=== PATIENT | male | born 1935 | race Caucasian/White ===

== ENCOUNTER 2019-02-11 11:08 | Inpatient (IN) | payer MEDICARE, BC ==
[2019-02-11] MEDS ORDERED: Ondansetron 4 MG/2 ML SDV IVPUSH PRN (11:20)
[2019-02-11] MEDS ORDERED: Sodium Chloride 0.9% 250 ML IV SCH (11:30)
[2019-02-11 11:50] LABS: CHLORIDE,CL 107 mEq/L (98-106); SODIUM,NA 143 mEq/L (136-145)
--- NOTE | 2019-02-11 12:11 | EDM.PDOC ---
ED HPI GENERAL MEDICAL PROBLEM - General Chief Complaint: General Stated Complaint: vomiting, dizziness Time Seen by Provider: 02/11/19 11:25 Source of Information: Reports: Patient, Family History Limitations: Reports: No Limitations - History of Present Illness INITIAL COMMENTS - FREE TEXT/NARRATIVE: Patient is an 83 year old male who presents to ER per EMS with complaints of sudden onset dizziness and vomiting. Was fine when awakening this am, was sitting at his computer when everything in the room started spinning. He laid down on the floor but it did not subside and had multiple emesis thereafter so EMS was called. Has not experienced anything like this in the past. No recent head trauma. No URI. Denies chest pain, shortness of breath or abdominal pain. No fevers. Has continued dizziness now with any head movements. PMH does include atrial fib, has been stable for many years, currently on Warfarin. Onset: Today, Sudden Duration: Hour(s): Location: Reports: Head Severity: Severe Improves with: Reports: Rest Worsens with: Reports: Movement Associated Symptoms: Reports: Nausea/Vomiting. Denies: Confusion, Chest Pain, Cough, Diaphoresis, Fever/Chills, Headaches, Loss of Appetite, Shortness of Breath, Syncope, Weakness - Related Data Allergies Allergy/AdvReac Type Severity Reaction Status Date / Time No Known Allergies Allergy Verified 02/11/19 11:19 Home Meds: Home Meds . [Unable to Verify Home Med List] 02/11/19 [History] Past Medical History - Past Health History Medical/Surgical History: Denies Medical/Surgical History Cardiovascular History: Reports: Afib, High Cholesterol, Hypertension Gastrointestinal History: Reports: GERD Musculoskeletal History: Reports: Arthritis Hematologic History: Reports: Other (See Below) Other Hematologic History: Son states that he thinks he takes a blood thinner but doesnt know what - Past Surgical History HEENT Surgical History: Reports: None Cardiovascular Surgical History: Reports: None Social & Family History - Family History Family Medical History: Unobtainable - Tobacco Use Smoking Status *Q: Never Smoker - Caffeine Use Caffeine Use: Reports: None - Recreational Drug Use Recreational Drug Use: No ED ROS GENERAL - Review of Systems Review Of Systems: See Below Constitutional: Reports: Weakness. Denies: Fever, Chills, Malaise, Fatigue, Decreased Appetite HEENT: Reports: Vertigo. Denies: Ear Pain, Sinus Problem, Throat Pain Respiratory: Denies: Shortness of Breath, Cough Cardiovascular: Denies: Chest Pain, Edema, Lightheadedness Endocrine: Reports: Fatigue GI/Abdominal: Reports: Nausea, Vomiting. Denies: Abdominal Pain, Black Stool, Bloody Stool : Reports: No Symptoms Musculoskeletal: Reports: Neck Pain (chronic) Skin: Reports: No Symptoms Neurological: Reports: Dizziness, Weakness Psychiatric: Reports: No Symptoms ED EXAM, GENERAL - Physical Exam Exam: See Below Exam Limited By: No Limitations General Appearance: Alert, WD/WN, Moderate Distress Eye Exam: Bilateral Eye: EOMI, PERRL Ears: Normal External Exam, Normal TMs Nose: Normal Inspection, Normal Mucosa, No Blood Throat/Mouth: Normal Inspection, Normal Oropharynx Head: Normocephalic Neck: Normal Inspection, Supple, Non-Tender Respiratory/Chest: No Respiratory Distress, Lungs Clear, Normal Breath Sounds Cardiovascular: Irregularly Irregular GI/Abdominal: Normal Bowel Sounds, Soft, Non-Tender Extremities: Normal Inspection, No Pedal Edema Neurological: Alert, Oriented Skin Exam: Warm, Dry Course - Vital Signs Last Recorded V/S: Last Vital Signs Temp 96.4 F 02/11/19 11:14 Pulse 64 02/11/19 11:14 Resp 18 02/11/19 11:14 BP 142/82 H 02/11/19 11:14 Pulse Ox 100 02/11/19 11:14 - Orders/Labs/Meds Orders: Active Orders 24 hr Category Date Time Status Head wo Cont [CT] Stat Exams 02/11/19 11:20 Ordered UA W/MICROSCOPIC [URIN] Stat Lab 02/11/19 11:20 Ordered Ondansetron [Zofran] Med 02/11/19 11:20 Ordered 4 mg IVPUSH Q6H PRN Sodium Chloride 0.9% @ 50 MLS/HR(250ml) Med 02/11/19 11:30 Ordered Sodium Chloride 0.9% [Normal Saline] 250 ml IV ASDIRECTED EKG 12 Lead [EK] Routine Ther 02/11/19 Ordered Medication Orders Sodium Chloride (Normal Saline) 250 mls @ 50 mls/hr IV ASDIRECTED PADMINI Last Admin: 02/11/19 11:48 Dose: 50 mls/hr Ondansetron HCl (Zofran) 4 mg IVPUSH Q6H PRN PRN Reason: Nausea Last Admin: 02/11/19 11:42 Dose: 4 mg Labs: Laboratory Tests 02/11/19 02/11/19 Range/Units 11:26 11:26 WBC 7.2 (5.0-10.0) 10^3/uL RBC 4.44 L (4.50-6.00) 10^6/uL Hgb 12.0 L (14.0-18.0) g/dL Hct 36.6 L (40.0-54.0) % MCV 82.4 (82.0-94.0) fL MCH 27.0 (27.0-32.0) pg MCHC 32.8 L (33.0-38.0) g/dL RDW Coeff of Sudheer 15.9 H (11.0-15.0) % Plt Count 183 (150-400) 10^3/uL Neut % (Auto) 68.0 (35-85) % Lymph % (Auto) 19.9 (10-55) % [place] % (Auto) 9.2 (0-16) % Eos % (Auto) 2.5 (0-5) % Baso % (Auto) 0.4 (0-3) % Neut # (Auto) 4.89 (1.80-7.00) 10^3/uL Lymph # (Auto) 1.43 (1.00-4.80) 10^3/uL [place] # (Auto) 0.66 (0.00-0.80) 10^3/uL Eos # (Auto) 0.18 (0.00-0.45) 10^3/uL Baso # (Auto) 0.03 10^3/uL Sodium 143 (136-145) mEq/L Potassium 3.7 (3.5-5.0) mEq/L Chloride 107 H (98-106) mEq/L Carbon Dioxide 23 (21-32) mmol/L BUN 20 H (7-18) mg/dL Creatinine 1.3 (0.7-1.3) mg/dL Est Cr Clr Drug Dosing TNP Estimated GFR (MDRD) 52 L (>=60) mL/min Glucose 127 H D (75-99) mg/dL Calcium 8.9 (8.4-10.1) mg/dL Total Bilirubin 0.7 (0.0-1.0) mg/dL AST 27 (15-37) U/L ALT 24 (12-78) U/L Alkaline Phosphatase 82 (46-116) U/L Troponin I < 0.017 (0.00-0.06) ng/mL Total Protein 7.3 (6.4-8.2) g/dL Albumin 3.6 (3.4-5.0) g/dL Meds: Medications Generic Name Dose Route Start Last Admin Trade Name Freq PRN Reason Stop Dose Admin Sodium Chloride 250 mls @ 50 mls/hr 02/11/19 11:30 02/11/19 11:48 Normal Saline IV 50 mls/hr ASDIRECTED PADMINI Administration Ondansetron HCl 4 mg 02/11/19 11:20 02/11/19 11:42 Zofran IVPUSH 4 mg Q6H PRN Administration Nausea - Re-Assessments/Exams Free Text/Narrative Re-Assessment/Exam: 02/11/19 12:00 CT scan of head is negative. Labs normal. Was given Zofran IV, only mild improvement. Still dizzy with head movements. IV infusing. will admit to observation for continued monitoring, fluids and meds for vertigo. Departure - Departure Time of Disposition: 12:15 Disposition: Refer to Observation Condition: Fair Clinical Impression: Vertigo - Discharge Information *PRESCRIPTION DRUG MONITORING PROGRAM REVIEWED*: Not Applicable *COPY OF PRESCRIPTION DRUG MONITORING REPORT IN PATIENT PAM: Not Applicable Sepsis Event Note - Evaluation Sepsis Screening Result: No Definite Risk - Focused Exam Vital Signs: Vital Signs Temp Pulse Resp BP Pulse Ox 02/11/19 11:14 96.4 F 64 18 142/82 H 100 Date Exam was Performed: 02/11/19 Time Exam was Performed: 12:06 - Problem List & Annotations (1) Vertigo SNOMED Code(s): 111114841 Code(s): R42 - DIZZINESS AND GIDDINESS Status: Acute Priority: High - Problem List Review Problem List Initiated/Reviewed/Updated: Yes - My Orders Last 24 Hours: My Active Orders 02/11/19 EKG 12 Lead [EK] Routine 02/11/19 11:20 Head wo Cont [CT] Stat UA W/MICROSCOPIC [URIN] Stat Ondansetron [Zofran] 4 mg IVPUSH Q6H PRN 02/11/19 11:30 Sodium Chloride 0.9% @ 50 MLS/HR(250ml) Sodium Chloride 0.9% [Normal Saline] 250 ml IV ASDIRECTED - Assessment/Plan Admission H&P: Please use this note as an admission H&P Last 24 Hours: My Active Orders 02/11/19 EKG 12 Lead [EK] Routine 02/11/19 11:20 Head wo Cont [CT] Stat UA W/MICROSCOPIC [URIN] Stat Ondansetron [Zofran] 4 mg IVPUSH Q6H PRN 02/11/19 11:30 Sodium Chloride 0.9% @ 50 MLS/HR(250ml) Sodium Chloride 0.9% [Normal Saline] 250 ml IV ASDIRECTED Assessment:: Vertigo History of atrial fib Plan: Admit to observation. Cardiac monitoring. IV fluids. Zofran for nausea. Consider canalith repositioning when more stable.
[2019-02-11] MEDS ORDERED: Sodium Chloride 0.9% 10 ML Syringe FLUSH PRN (12:58)
[2019-02-11] MEDS ORDERED: Ondansetron 4 MG Tab.DIS PO PRN (12:58)
[2019-02-11] MEDS ORDERED: Acetaminophen 325 MG Tab PO PRN (12:58)
[2019-02-11] MEDS ORDERED: Nitroglycerin 0.4 MG Tab.SL SL PRN (15:25)
[2019-02-11] MEDS ORDERED: Warfarin 5 MG Tab PO SCH (15:30)
[2019-02-11] MEDS: Sodium Chloride 0.9% 1,000 ML IV SCH (17:06)
[2019-02-12] MEDS: Sodium Chloride 0.9% 1,000 ML IV SCH ×2 (02:11→11:51)
[2019-02-12] MEDS ORDERED: Simvastatin 40 MG Tab PO SCH (08:00)
[2019-02-12] MEDS ORDERED: VERAPAMIL HCL 240 MG PO SCH (08:00)
[2019-02-12] MEDS ORDERED: Pantoprazole 40 MG Tab.CR PO SCH (08:00)
--- NOTE | 2019-02-12 16:20 | PCM.PN ---
- General Info Date of Service: 02/12/19 Functional Status: Reports: Pain Controlled, Tolerating Diet, Ambulating (with vertigo and difficulty with assistance) - Review of Systems General: Reports: No Symptoms. Denies: Weakness HEENT: Reports: No Symptoms. Denies: Ear Pain, Sinus Congestion, Rhinitis Pulmonary: Reports: No Symptoms Cardiovascular: Reports: No Symptoms Gastrointestinal: Reports: Nausea. Denies: Abdominal Pain, Vomiting Genitourinary: Reports: No Symptoms Musculoskeletal: Reports: No Symptoms Skin: Reports: No Symptoms Neurological: Reports: Gait Disturbance, Other ("room spinning"). Denies: Syncope, Change in Speech Psychiatric: Reports: No Symptoms. Denies: Confusion - Patient Data Vitals - Most Recent: Last Vital Signs Temp 97.7 F 02/12/19 11:57 Pulse 74 02/12/19 11:57 Resp 18 02/12/19 11:57 BP 133/80 02/12/19 11:57 Pulse Ox 98 02/12/19 11:57 Weight - Most Recent: 192 lb 3.2 oz I&O - Last 24 Hours: Intake & Output 02/12/19 02/12/19 02/12/19 06:59 14:59 22:59 Intake Total 908 967 Balance 908 967 Lab Results Last 24 Hours: Laboratory Results - last 24 hr 02/12/19 02/12/19 02/12/19 Range/Units 07:09 07:09 08:27 WBC 8.4 (5.0-10.0) 10^3/uL RBC 4.48 L (4.50-6.00) 10^6/uL Hgb 12.1 L (14.0-18.0) g/dL Hct 36.8 L (40.0-54.0) % MCV 82.1 (82.0-94.0) fL MCH 27.0 (27.0-32.0) pg MCHC 32.9 L (33.0-38.0) g/dL RDW Coeff of Sudheer 15.9 H (11.0-15.0) % Plt Count 179 (150-400) 10^3/uL Neut % (Auto) 75.8 (35-85) % Lymph % (Auto) 13.1 (10-55) % [place] % (Auto) 10.5 (0-16) % Eos % (Auto) 0.4 (0-5) % Baso % (Auto) 0.2 (0-3) % Neut # (Auto) 6.34 (1.80-7.00) 10^3/uL Lymph # (Auto) 1.10 (1.00-4.80) 10^3/uL [place] # (Auto) 0.88 H (0.00-0.80) 10^3/uL Eos # (Auto) 0.03 (0.00-0.45) 10^3/uL Baso # (Auto) 0.02 10^3/uL PT 16.5 H (9.7-12.3) SEC INR 1.65 H (0.92-1.18) Sodium 142 (136-145) mEq/L Potassium 4.1 (3.5-5.0) mEq/L Chloride 107 H (98-106) mEq/L Carbon Dioxide 24 (21-32) mmol/L BUN 17 (7-18) mg/dL Creatinine 1.3 (0.7-1.3) mg/dL Est Cr Clr Drug Dosing 46.95 mL/min Estimated GFR (MDRD) 52 L (>=60) mL/min Glucose 86 D (75-99) mg/dL Calcium 8.3 L (8.4-10.1) mg/dL C-Reactive Protein 0.3 (0.2-0.8) mg/dL Med Orders - Current: Current Medications Acetaminophen (Tylenol) 650 mg PO Q4H PRN PRN Reason: Pain (Mild 1-3)/fever Last Admin: 02/11/19 19:33 Dose: 650 mg Sodium Chloride (Normal Saline) 1,000 mls @ 100 mls/hr IV ASDIRECTED PADMINI Last Admin: 02/12/19 11:51 Dose: 100 mls/hr Nitroglycerin (Nitrostat) 0.4 mg SL ASDIRECTED PRN PRN Reason: Chest Pain Non-Formulary Medication (Verapamil Hcl [Verapamil Er]) 240 mg PO DAILY [facility] Ondansetron HCl (Zofran) 4 mg IVPUSH Q6H PRN PRN Reason: Nausea Last Admin: 02/11/19 11:42 Dose: 4 mg Ondansetron HCl (Zofran Odt) 4 mg PO Q4H PRN PRN Reason: nausea, able to take PO Last Admin: 02/11/19 23:11 Dose: 4 mg Pantoprazole Sodium (Protonix) 40 mg PO DAILY [facility] Last Admin: 02/12/19 07:54 Dose: 40 mg Simvastatin (Zocor) 40 mg PO DAILY [facility] Last Admin: 02/12/19 07:54 Dose: 40 mg Sodium Chloride (Saline Flush) 10 ml FLUSH ASDIRECTED PRN PRN Reason: Keep Vein Open Warfarin Sodium (Coumadin) 5 mg PO ASDIRECTED [facility] Discontinued Medications Sodium Chloride (Normal Saline) 250 mls @ 50 mls/hr IV ASDIRECTED [facility] Last Admin: 02/11/19 11:48 Dose: 50 mls/hr - Exam General: Alert, Oriented, Cooperative HEENT: Pupils Equal, Pupils Reactive, EOMI, Mucous Membr. Moist/[place], Other (No Nystagmus) Neck: Supple, Trachea Midline, No JVD Lungs: Clear to Auscultation, Normal Respiratory Effort Cardiovascular: Regular Rate, Regular Rhythm GI/Abdominal Exam: Normal Bowel Sounds, Soft, Non-Tender Back Exam: Normal Inspection, Full Range of Motion Extremities: Normal Inspection, Normal Range of Motion, Non-Tender, No Pedal Edema, Normal Capillary Refill Peripheral Pulses: 2+: Radial (L), Radial (R), Posterior Tibial (L), Posterior Tibial (R), Dorsalis Pedis (L), Dorsalis Pedis (R) Skin: Warm, Dry, Intact Neurological: Normal Speech, Strength Equal Bilateral, Sensation Intact, Other ( gait ataxia, but due to vertigo sensation or room spinning). No: Normal Gait Psy/Mental Status: Alert, Normal Affect, Normal Mood Sepsis Event Note - Evaluation Sepsis Screening Result: No Definite Risk - Focused Exam Vital Signs: Vital Signs Temp Pulse Resp BP Pulse Ox 02/12/19 11:57 97.7 F 74 18 133/80 98 02/12/19 08:00 97.3 F 76 16 120/83 96 Date Exam was Performed: 02/12/19 Time Exam was Performed: 17:57 - Problem List Review Problem List Initiated/Reviewed/Updated: Yes - My Orders Last 24 Hours: My Active Orders 02/13/19 08:13 INR,PT,PROTHROMBIN TIME [COAG] DAILY - Plan Plan:: Patient was admitted yesterday for vertigo with nausea and vomiting with positional changes. Head ct negative. No unilateral or focal weaknesses noted. Today patient reports his vertigo is some improved. However, when patient sits up the room spins. Patient reports with ambulation the room is spinning and he gets nauseated. Patient has not vomited today. Patient reports that yesterday he was sitting at his computer and suddenly had posterior left headache "in shape of a box area". He reports he has never had this before. Patient reports that then suddenly with this pain he experienced a room sensation and nausea with vomiting sensation. Patient today reports he still has this room spinning sensation. Patient does have cardiovascular risks with hyperlipidemia on a statin, he has a-fib currently controlled at rate of 65. However, his coumadin is subtherapeutic. I would like to MRI the patient brain, but MRI is not available at our facility until another 6 days. I called and spoke to Neurologist Dr. Peoples at [facility] for guidance on this patient. She suggest that I transfer the patient. She reports the episode is greater than 24 hours, but he is still symptomatic. So, she would perform an MRI on him today to check for stroke. She recommends getting him therapeutic as well. She said she would be glad to see the patient today and recommends transfer for MRI and for her to see him. Patient does not have nystagmus on exam. I have discussed this with the patient and Jono family at bedside. The patient does not want to be transferred. He wants to stay in [place], and have an MRI done Thursday. Jono has recommended he also be transferred. However, patient is alert and oriented. The patient has been explained all the risk vs benefits including risk of having a big stroke and . I also explained to the patient that CT is not the best test for stroke rule out. He understands. I explained to the patient that I can attempt to get his coumadin INR therapeutic here, but if there is hemorrhagic stroke that could be seen by MRI and not CT, doing so could lead to bleed. He understands this risk. He would like to stay here in [place] and do Coumadin. He understands risk that includes big stroke and . I also will not give Antivert due to patient elderly age and cardiovascular risks. Patient is currently on Coumadin, HTN med, and Statin for cardiovascular risks. Will monitor his INR during his stay for coumadin to get therapeutic.
[2019-02-12] MEDS ORDERED: VERAPAMIL 240 MG PO SCH (16:45)
[2019-02-12] MEDS ORDERED: ONDANSETRON 4 MG PO PRN ×2 (16:49→17:00)
[2019-02-12] MEDS: VERAPAMIL 240 MG PO SCH (17:27)
[2019-02-12] MEDS: Warfarin 5 MG Tab **OWN MED PO SCH (17:27)
[2019-02-13] MEDS ORDERED: Simvastatin 40 MG Tab **OWN MED PO SCH ×2 (08:00)
[2019-02-13] MEDS ORDERED: Pantoprazole 40 MG Tab.CR **OWN MED PO SCH ×2 (08:00)
[2019-02-13] MEDS: VERAPAMIL 240 MG PO SCH (08:17)
[2019-02-13] MEDS: Warfarin 5 MG Tab **OWN MED PO SCH (11:59)
--- NOTE | 2019-02-13 16:34 | PCM.PN ---
- General Info Date of Service: 02/13/19 Functional Status: Reports: Pain Controlled, Tolerating Diet, Ambulating (with some dizziness) - Review of Systems General: Reports: No Symptoms HEENT: Reports: No Symptoms Pulmonary: Reports: No Symptoms Cardiovascular: Reports: No Symptoms Gastrointestinal: Reports: No Symptoms Genitourinary: Reports: No Symptoms Musculoskeletal: Reports: No Symptoms Skin: Reports: No Symptoms Neurological: Reports: Dizziness. Denies: Headache Psychiatric: Reports: No Symptoms - Patient Data Vitals - Most Recent: Last Vital Signs Temp 98.7 F 02/13/19 15:56 Pulse 52 L 02/13/19 15:56 Resp 18 02/13/19 15:56 BP 124/72 02/13/19 15:56 Pulse Ox 97 02/13/19 15:56 Weight - Most Recent: 192 lb 3.2 oz Lab Results Last 24 Hours: Laboratory Results - last 24 hr 02/13/19 Range/Units 07:31 PT 17.5 H (9.7-12.3) SEC INR 1.75 H (0.92-1.18) Med Orders - Current: Current Medications Acetaminophen (Tylenol) 650 mg PO Q4H PRN PRN Reason: Pain (Mild 1-3)/fever Last Admin: 02/11/19 19:33 Dose: 650 mg Nitroglycerin (Nitrostat) 0.4 mg SL ASDIRECTED PRN PRN Reason: Chest Pain Verapamil 240 Mg Er (Own Med) 0 mg PO DAILY [facility] Last Admin: 02/13/19 08:17 Dose: 240 mg Ondansetron 4 Mg Tab (Own Med) 0 each PO Q4H PRN PRN Reason: nausea, able to take PO Ondansetron HCl (Zofran) 4 mg IVPUSH Q6H PRN PRN Reason: Nausea Last Admin: 02/11/19 11:42 Dose: 4 mg Pantoprazole Sodium (Protonix) 40 mg PO DAILY [facility] Last Admin: 02/13/19 08:17 Dose: 40 mg Simvastatin (Zocor) 40 mg PO DAILY [facility] Last Admin: 02/13/19 08:18 Dose: 40 mg Sodium Chloride (Saline Flush) 10 ml FLUSH ASDIRECTED PRN PRN Reason: Keep Vein Open Warfarin Sodium (Coumadin) 5 mg PO DAILY@1200 [facility] Last Admin: 02/13/19 11:59 Dose: 5 mg Discontinued Medications Sodium Chloride (Normal Saline) 250 mls @ 50 mls/hr IV ASDIRECTED [facility] Last Admin: 02/11/19 11:48 Dose: 50 mls/hr Sodium Chloride (Normal Saline) 1,000 mls @ 100 mls/hr IV ASDIRECTED [facility] Last Admin: 02/12/19 11:51 Dose: 100 mls/hr Non-Formulary Medication (Verapamil Hcl [Verapamil Er]) 240 mg PO DAILY [facility] Last Admin: 02/12/19 17:28 Dose: Not Given Verapamil 240 Mg Er (Own Med) 0 mg PO DAILY [facility] Ondansetron 4 Mg Tab (Own Med) 0 each PO Q4H PRN PRN Reason: nausea, able to take PO Ondansetron HCl (Zofran Odt) 4 mg PO Q4H PRN PRN Reason: nausea, able to take PO Last Admin: 02/11/19 23:11 Dose: 4 mg Pantoprazole Sodium (Protonix) 40 mg PO DAILY [facility] Last Admin: 02/12/19 07:54 Dose: 40 mg Pantoprazole Sodium (Protonix) 40 mg PO DAILY [facility] Simvastatin (Zocor) 40 mg PO DAILY [facility] Last Admin: 02/12/19 07:54 Dose: 40 mg Simvastatin (Zocor) 40 mg PO DAILY [facility] Warfarin Sodium (Coumadin) 5 mg PO ASDIRECTED [facility] - Exam General: Alert, Oriented, Cooperative HEENT: Pupils Equal, Pupils Reactive, EOMI, Mucous Membr. Moist/[place], Other (No Nystagmus) Neck: Supple, Trachea Midline, No JVD Lungs: Clear to Auscultation, Normal Respiratory Effort Cardiovascular: Regular Rate, Regular Rhythm, Murmurs GI/Abdominal Exam: Soft, Non-Tender Extremities: Normal Inspection, Normal Range of Motion, Non-Tender, No Pedal Edema, Normal Capillary Refill Peripheral Pulses: 2+: Carotid (L), Carotid (R), Radial (L), Radial (R), Posterior Tibial (L), Posterior Tibial (R) Skin: Warm, Dry, Intact Neurological: No New Focal Deficit, Strength Equal Bilateral Psy/Mental Status: Alert, Normal Affect, Normal Mood Sepsis Event Note - Evaluation Sepsis Screening Result: No Definite Risk - Focused Exam Vital Signs: Vital Signs Temp Pulse Resp BP Pulse Ox 02/13/19 15:56 98.7 F 52 L 18 124/72 97 02/13/19 11:58 98.4 F 54 L 20 98/66 96 02/13/19 08:00 98.7 F 62 18 123/71 97 02/13/19 04:45 99.4 F 56 L 20 104/66 99 Date Exam was Performed: 02/13/19 Time Exam was Performed: 16:34 - Problem List Review Problem List Initiated/Reviewed/Updated: Yes - My Orders Last 24 Hours: My Active Orders 02/12/19 16:45 Warfarin [Coumadin] 5 mg PO DAILY@1200 02/13/19 16:24 Patient Status [ADT] Routine Cardiac Monitoring [RC] . DIRECTED - Plan Plan:: 02/12/2019 0800 Patient was admitted yesterday for vertigo with nausea and vomiting with positional changes. Head ct negative. No unilateral or focal weaknesses noted. Today patient reports his vertigo is some improved. However, when patient sits up the room spins. Patient reports with ambulation the room is spinning and he gets nauseated. Patient has not vomited today. Patient reports that yesterday he was sitting at his computer and suddenly had posterior left headache "in shape of a box area". He reports he has never had this before. Patient reports that then suddenly with this pain he experienced a room sensation and nausea with vomiting sensation. Patient today reports he still has this room spinning sensation. Patient does have cardiovascular risks with hyperlipidemia on a statin, he has a-fib currently controlled at rate of 65. However, his coumadin is subtherapeutic. I would like to MRI the patient brain, but MRI is not available at our facility until another 6 days. I called and spoke to Neurologist Dr. Peoples at [facility] for guidance on this patient. She suggest that I transfer the patient. She reports the episode is greater than 24 hours, but he is still symptomatic. So, she would perform an MRI on him today to check for stroke. She recommends getting him therapeutic as well. She said she would be glad to see the patient today and recommends transfer for MRI and for her to see him. Patient does not have nystagmus on exam. I have discussed this with the patient and Jono family at bedside. The patient does not want to be transferred. He wants to stay in [place], and have an MRI done Thursday. Jono has recommended he also be transferred. However, patient is alert and oriented. The patient has been explained all the risk vs benefits including risk of having a big stroke and . I also explained to the patient that CT is not the best test for stroke rule out. He understands. I explained to the patient that I can attempt to get his coumadin INR therapeutic here, but if there is hemorrhagic stroke that could be seen by MRI and not CT, doing so could lead to bleed. He understands this risk. He would like to stay here in [place] and do Coumadin. He understands risk that includes big stroke and . I also will not give Antivert due to patient elderly age and cardiovascular risks. Patient is currently on Coumadin, HTN med, and Statin for cardiovascular risks. Will monitor his INR during his stay for coumadin to get therapeutic. 02/13/2019 1600 Patient today reports he does feel some better, but does have a lot of dizziness when ambulation or changing positions. Patient denies nausea and vomiting, which does seem significantly improved. The patient today has had some episodes of bradycardia. His HR yesterday morning was 65, today has been low 50s. Patient still refuses transfer to higher level of care facility for cardiac evaluation or neuro consultation. Labs were unremarkable. Will continue admit and allow PCP to see this patient tomorrow. Possible discharge tomorrow with further out patient work up, or further in patient workup if patient is willing. No unilateral weaknesses. Patient alert and oriented.
[2019-02-13] MEDS ORDERED: Ondansetron 4 MG Tab.DIS PO PRN ×2 (22:49→22:50)
[2019-02-14] MEDS: Pantoprazole 40 MG Tab.CR PO SCH (06:12)
[2019-02-14] MEDS ORDERED: Pantoprazole 40 MG Tab.CR PO SCH (07:00)
[2019-02-14] MEDS: Simvastatin 40 MG Tab PO SCH (09:06)
[2019-02-14] MEDS: Verapamil 240 MG Tab.ER PO SCH (09:06)
--- NOTE | 2019-02-14 09:24 | PCM.PN ---
- General Info Date of Service: 02/14/19 Admission Dx/Problem (Free Text): BPPV Functional Status: Reports: Pain Controlled, Tolerating Diet, Ambulating - Review of Systems General: Reports: Weakness HEENT: Reports: No Symptoms Pulmonary: Denies: Shortness of Breath, Cough Cardiovascular: Denies: Chest Pain, Edema, Lightheadedness Gastrointestinal: Denies: Abdominal Pain, Nausea, Vomiting Genitourinary: Reports: No Symptoms Musculoskeletal: Reports: No Symptoms Skin: Reports: No Symptoms Neurological: Reports: Dizziness, Weakness - Patient Data Vitals - Most Recent: Last Vital Signs Temp 98.6 F 02/14/19 04:00 Pulse 66 02/14/19 04:00 Resp 20 02/14/19 04:00 BP 127/70 02/14/19 04:00 Pulse Ox 96 02/14/19 04:00 Weight - Most Recent: 192 lb 3.2 oz Lab Results Last 24 Hours: Laboratory Results - last 24 hr 02/14/19 02/14/19 Range/Units 07:00 07:00 WBC 6.5 (5.0-10.0) 10^3/uL RBC 4.38 L (4.50-6.00) 10^6/uL Hgb 11.7 L (14.0-18.0) g/dL Hct 35.8 L (40.0-54.0) % MCV 81.7 L (82.0-94.0) fL MCH 26.7 L (27.0-32.0) pg MCHC 32.7 L (33.0-38.0) g/dL RDW Coeff of Sudheer 16.0 H (11.0-15.0) % Plt Count 184 (150-400) 10^3/uL Neut % (Auto) 66.4 (35-85) % Lymph % (Auto) 19.6 (10-55) % Coke % (Auto) 11.7 (0-16) % Eos % (Auto) 1.7 (0-5) % Baso % (Auto) 0.6 (0-3) % Neut # (Auto) 4.31 (1.80-7.00) 10^3/uL Lymph # (Auto) 1.27 (1.00-4.80) 10^3/uL Coke # (Auto) 0.76 (0.00-0.80) 10^3/uL Eos # (Auto) 0.11 (0.00-0.45) 10^3/uL Baso # (Auto) 0.04 10^3/uL Sodium 145 (136-145) mEq/L Potassium 3.9 (3.5-5.0) mEq/L Chloride 110 H (98-106) mEq/L Carbon Dioxide 26 (21-32) mmol/L BUN 19 H (7-18) mg/dL Creatinine 1.2 (0.7-1.3) mg/dL Est Cr Clr Drug Dosing 50.86 mL/min Estimated GFR (MDRD) 58 L (>=60) mL/min Glucose 87 (75-99) mg/dL Calcium 8.1 L (8.4-10.1) mg/dL Med Orders - Current: Current Medications Acetaminophen (Tylenol) 650 mg PO Q4H PRN PRN Reason: Pain (Mild 1-3)/fever Last Admin: 02/11/19 19:33 Dose: 650 mg Nitroglycerin (Nitrostat) 0.4 mg SL ASDIRECTED PRN PRN Reason: Chest Pain Ondansetron HCl (Zofran) 4 mg IVPUSH Q6H PRN PRN Reason: Nausea Last Admin: 02/11/19 11:42 Dose: 4 mg Ondansetron HCl (Zofran Odt) 4 mg PO Q4H PRN PRN Reason: nausea, able to take PO Pantoprazole Sodium (Protonix) 40 mg PO ACBREAKFAST [facility] Last Admin: 02/14/19 06:12 Dose: 40 mg Simvastatin (Zocor) 40 mg PO DAILY [facility] Last Admin: 02/14/19 09:06 Dose: 40 mg Sodium Chloride (Saline Flush) 10 ml FLUSH ASDIRECTED PRN PRN Reason: Keep Vein Open Verapamil HCl (Calan Sr) 240 mg PO DAILY [facility] Last Admin: 02/14/19 09:06 Dose: 240 mg Warfarin Sodium (Coumadin) 5 mg PO DAILY@1200 [facility] Discontinued Medications Sodium Chloride (Normal Saline) 250 mls @ 50 mls/hr IV ASDIRECTED [facility] Last Admin: 02/11/19 11:48 Dose: 50 mls/hr Sodium Chloride (Normal Saline) 1,000 mls @ 100 mls/hr IV ASDIRECTED [facility] Last Admin: 02/12/19 11:51 Dose: 100 mls/hr Non-Formulary Medication (Verapamil Hcl [Verapamil Er]) 240 mg PO DAILY [facility] Last Admin: 02/12/19 17:28 Dose: Not Given Verapamil 240 Mg Er (Own Med) 0 mg PO DAILY [facility] Verapamil 240 Mg Er (Own Med) 0 mg PO DAILY [facility] Last Admin: 02/13/19 08:17 Dose: 240 mg Ondansetron 4 Mg Tab (Own Med) 0 each PO Q4H PRN PRN Reason: nausea, able to take PO Ondansetron 4 Mg Tab (Own Med) 0 each PO Q4H PRN PRN Reason: nausea, able to take PO Ondansetron HCl (Zofran Odt) 4 mg PO Q4H PRN PRN Reason: nausea, able to take PO Last Admin: 02/11/19 23:11 Dose: 4 mg Ondansetron HCl (Zofran Odt) 4 mg PO Q4H PRN PRN Reason: nausea, able to take PO Pantoprazole Sodium (Protonix) 40 mg PO DAILY [facility] Last Admin: 02/12/19 07:54 Dose: 40 mg Pantoprazole Sodium (Protonix) 40 mg PO DAILY [facility] Pantoprazole Sodium (Protonix) 40 mg PO DAILY [facility] Last Admin: 02/13/19 08:17 Dose: 40 mg Simvastatin (Zocor) 40 mg PO DAILY [facility] Last Admin: 02/12/19 07:54 Dose: 40 mg Simvastatin (Zocor) 40 mg PO DAILY [facility] Simvastatin (Zocor) 40 mg PO DAILY [facility] Last Admin: 02/13/19 08:18 Dose: 40 mg Warfarin Sodium (Coumadin) 5 mg PO ASDIRECTED [facility] Warfarin Sodium (Coumadin) 5 mg PO DAILY@1200 [facility] Last Admin: 02/13/19 11:59 Dose: 5 mg - Exam General: Alert, Oriented HEENT: Mucous Membr. Moist/[place] Neck: Supple Lungs: Clear to Auscultation, Normal Respiratory Effort Cardiovascular: Irregular Rhythm GI/Abdominal Exam: Normal Bowel Sounds, Soft, Non-Tender Extremities: Normal Inspection, No Pedal Edema Skin: Warm, Dry Neurological: No New Focal Deficit Sepsis Event Note - Evaluation Sepsis Screening Result: No Definite Risk - Focused Exam Vital Signs: Vital Signs Temp Pulse Resp BP Pulse Ox 02/14/19 04:00 98.6 F 66 20 127/70 96 02/13/19 23:37 98.6 F 60 20 143/85 H 97 Date Exam was Performed: 02/14/19 Time Exam was Performed: 09:17 - Problem List & Annotations (1) Vertigo SNOMED Code(s): 963960328 Code(s): R42 - DIZZINESS AND GIDDINESS Status: Acute Priority: High Current Visit: Yes - Problem List Review Problem List Initiated/Reviewed/Updated: Yes - My Orders Last 24 Hours: My Active Orders 02/13/19 22:47 Verapamil [Calan SR] 240 mg PO DAILY 02/13/19 22:50 Ondansetron [Zofran ODT] 4 mg PO Q4H PRN 02/14/19 07:00 Pantoprazole [ProTONIX] 40 mg PO ACBREAKFAST 02/14/19 08:00 Simvastatin [Zocor] 40 mg PO DAILY - Assessment Assessment:: BPPV - Plan Plan:: 02/12/2019 0800 Patient was admitted yesterday for vertigo with nausea and vomiting with positional changes. Head ct negative. No unilateral or focal weaknesses noted. Today patient reports his vertigo is some improved. However, when patient sits up the room spins. Patient reports with ambulation the room is spinning and he gets nauseated. Patient has not vomited today. Patient reports that yesterday he was sitting at his computer and suddenly had posterior left headache "in shape of a box area". He reports he has never had this before. Patient reports that then suddenly with this pain he experienced a room sensation and nausea with vomiting sensation. Patient today reports he still has this room spinning sensation. Patient does have cardiovascular risks with hyperlipidemia on a statin, he has a-fib currently controlled at rate of 65. However, his coumadin is subtherapeutic. I would like to MRI the patient brain, but MRI is not available at our facility until another 6 days. I called and spoke to Neurologist Dr. Peoples at [facility] for guidance on this patient. She suggest that I transfer the patient. She reports the episode is greater than 24 hours, but he is still symptomatic. So, she would perform an MRI on him today to check for stroke. She recommends getting him therapeutic as well. She said she would be glad to see the patient today and recommends transfer for MRI and for her to see him. Patient does not have nystagmus on exam. I have discussed this with the patient and Jono family at bedside. The patient does not want to be transferred. He wants to stay in [place], and have an MRI done Thursday. Jono has recommended he also be transferred. However, patient is alert and oriented. The patient has been explained all the risk vs benefits including risk of having a big stroke and . I also explained to the patient that CT is not the best test for stroke rule out. He understands. I explained to the patient that I can attempt to get his coumadin INR therapeutic here, but if there is hemorrhagic stroke that could be seen by MRI and not CT, doing so could lead to bleed. He understands this risk. He would like to stay here in [place] and do Coumadin. He understands risk that includes big stroke and . I also will not give Antivert due to patient elderly age and cardiovascular risks. Patient is currently on Coumadin, HTN med, and Statin for cardiovascular risks. Will monitor his INR during his stay for coumadin to get therapeutic. 02/13/2019 1600 Patient today reports he does feel some better, but does have a lot of dizziness when ambulation or changing positions. Patient denies nausea and vomiting, which does seem significantly improved. The patient today has had some episodes of bradycardia. His HR yesterday morning was 65, today has been low 50s. Patient still refuses transfer to higher level of care facility for cardiac evaluation or neuro consultation. Labs were unremarkable. Will continue admit and allow PCP to see this patient tomorrow. Possible discharge tomorrow with further out patient work up, or further in patient workup if patient is willing. No unilateral weaknesses. Patient alert and oriented. 02-14-2018 Patient is doing much better today, less dizziness at rest. Is moving his head freely today. Admits to dizziness when up but states it only lasts 2 minutes or so. No further nausea or vomiting. Appetite has been good. Blood pressure 126/70. Oxygen sats 96% on room air. Stable atrial fib with rate 60s. No other neurological deficits are noted. Family at bedside. Myself and Dr. Page discussed need for canalith reposition which will be done later today. Continue with current plan. Probable discharge home tomorrow. Plan for MRI on Thursday.
[2019-02-14] MEDS ORDERED: Warfarin 5 MG Tab PO SCH (12:00)
[2019-02-15] MEDS: Pantoprazole 40 MG Tab.CR PO SCH (06:54)
[2019-02-15] MEDS: Verapamil 240 MG Tab.ER PO SCH (07:29)
[2019-02-15] MEDS: Simvastatin 40 MG Tab PO SCH (07:29)
--- NOTE | 2019-02-15 15:23 | PCM.DCSUM1 ---
Discharge Summary - Hospital Course Free Text/Narrative:: Grey is an 83 year old male who presented to the ER per EMS with acute onset vertigo. Was sitting at his computer when "everything started to spin". Had to lay down on the floor and then started vomiting multiple times with any head movement. Remained symptomatic in the ER. CT scan of the head was negative. Labs normal. Was given Zofran and did help subside mildly. Was admitted for IV fluids, cardiac monitoring and canalith repositioning. Diagnosis: Stroke: No Modified [place] Scale: No Symptoms at All Modified [place] Scale Score: 0 - Discharge Data Discharge Date: 02/15/19 Discharge Disposition: Home, Self-Care 01 Condition: Fair - Referral to Home Health Primary Care Physician: PCP None - Discharge Diagnosis/Problem(s) (1) Vertigo SNOMED Code(s): 934614736 ICD Code: R42 - DIZZINESS AND GIDDINESS Status: Acute Priority: High - Patient Summary/Data Complications: none Consults: Consultations 02/11/19 12:58 PT Evaluation and Treatment [CONS] Routine Hospital Course: Patient has slowly improved over the last 4 days. Was having dizziness with any head movement on admit, now has infrequent episodes that last only 3 seconds. States "affects one side or the other but coming less often". Labs have remained normal. Is ambulating with walker, states if episode occurs, will stop and rest with walker but has not been concerned about falling. Telemetry noted atrial fib, chronic in nature. INR therapeutic. Mahamed Baig did contact neurology over the weekend, recommended avoiding meclizine due to bradycardia and obtain MRI when able. Patient did not want to be transferred for that over the weekend. Did have canalith repositioning yesterday, feels like may have "helped a little". Episodes less often. Has not had any neurological changes, no weakness in arms or legs. No headaches. Will discharge today, plan for MRI on Thursday. Can take zofran if develops further dizziness or vomiting. - Patient Instructions Diet: Usual Diet as Tolerated Activity: As Tolerated Other/Special Instructions: MRI on Thursday at 9 am - Discharge Plan *PRESCRIPTION DRUG MONITORING PROGRAM REVIEWED*: Not Applicable *COPY OF PRESCRIPTION DRUG MONITORING REPORT IN PATIENT PAM: Not Applicable Prescriptions/Med Rec: Ondansetron [Zofran ODT] 4 mg PO Q4H PRN #10 tab.dis PRN Reason: nausea, able to take PO Home Medications: Home Meds Clobetasol [Clobetasol 0.05%] 1 applic TOP ASDIRECTED PRN 02/11/19 [History] Nitroglycerin [Nitrostat] 0.4 mg SL ASDIRECTED PRN 02/11/19 [History] Pantoprazole Sodium 40 mg PO DAILY 02/11/19 [History] Simvastatin 40 mg PO DAILY 02/11/19 [History] Verapamil HCl [Verapamil ER] 240 mg PO DAILY 02/11/19 [History] Warfarin [Coumadin] 5 mg PO ASDIRECTED 02/11/19 [History] Ondansetron [Zofran ODT] 4 mg PO Q4H PRN #10 tab.dis 02/15/19 [Rx] Patient Handouts: Vertigo, Benign Positional Vertigo Forms: ED Department Discharge Referrals: Tad Hernandes MD [ED Physician] - (follow up with Dr. Hernandes on Thursday next week) - Discharge Summary/Plan Comment DC Time >30 min.: No - General Info Date of Service: 02/15/19 Admission Dx/Problem (Free Text: BPPV Functional Status: Reports: Pain Controlled, Tolerating Diet, Ambulating - Review of Systems General: Denies: Weakness, Fatigue, Malaise HEENT: Reports: No Symptoms Pulmonary: Denies: Shortness of Breath, Cough Cardiovascular: Denies: Chest Pain, Edema, Lightheadedness Gastrointestinal: Denies: Abdominal Pain, Nausea, Vomiting Genitourinary: Reports: No Symptoms Musculoskeletal: Reports: No Symptoms Skin: Reports: No Symptoms Neurological: Reports: Dizziness, Weakness - Patient Data Vitals - Most Recent: Last Vital Signs Temp 97.7 F 02/15/19 07:54 Pulse 65 02/15/19 07:54 Resp 16 02/15/19 07:54 BP 132/81 02/15/19 07:54 Pulse Ox 97 02/15/19 07:54 Weight - Most Recent: 192 lb 3.2 oz Lab Results - Last 24 hrs: Laboratory Results - last 24 hr 02/15/19 Range/Units 07:05 PT 19.7 H (9.7-12.3) SEC INR 1.99 H (0.92-1.18) Med Orders - Current: Current Medications Discontinued Medications Acetaminophen (Tylenol) 650 mg PO Q4H PRN PRN Reason: Pain (Mild 1-3)/fever Last Admin: 02/11/19 19:33 Dose: 650 mg Sodium Chloride (Normal Saline) 250 mls @ 50 mls/hr IV ASDIRECTED [facility] Last Admin: 02/11/19 11:48 Dose: 50 mls/hr Sodium Chloride (Normal Saline) 1,000 mls @ 100 mls/hr IV ASDIRECTED [facility] Last Admin: 02/12/19 11:51 Dose: 100 mls/hr Nitroglycerin (Nitrostat) 0.4 mg SL ASDIRECTED PRN PRN Reason: Chest Pain Non-Formulary Medication (Verapamil Hcl [Verapamil Er]) 240 mg PO DAILY [facility] Last Admin: 02/12/19 17:28 Dose: Not Given Verapamil 240 Mg Er (Own Med) 0 mg PO DAILY [facility] Verapamil 240 Mg Er (Own Med) 0 mg PO DAILY [facility] Last Admin: 02/13/19 08:17 Dose: 240 mg Ondansetron 4 Mg Tab (Own Med) 0 each PO Q4H PRN PRN Reason: nausea, able to take PO Ondansetron 4 Mg Tab (Own Med) 0 each PO Q4H PRN PRN Reason: nausea, able to take PO Ondansetron HCl (Zofran) 4 mg IVPUSH Q6H PRN PRN Reason: Nausea Last Admin: 02/11/19 11:42 Dose: 4 mg Ondansetron HCl (Zofran Odt) 4 mg PO Q4H PRN PRN Reason: nausea, able to take PO Last Admin: 02/11/19 23:11 Dose: 4 mg Ondansetron HCl (Zofran Odt) 4 mg PO Q4H PRN PRN Reason: nausea, able to take PO Ondansetron HCl (Zofran Odt) 4 mg PO Q4H PRN PRN Reason: nausea, able to take PO Pantoprazole Sodium (Protonix) 40 mg PO DAILY [facility] Last Admin: 02/12/19 07:54 Dose: 40 mg Pantoprazole Sodium (Protonix) 40 mg PO DAILY [facility] Pantoprazole Sodium (Protonix) 40 mg PO DAILY [facility] Last Admin: 02/13/19 08:17 Dose: 40 mg Pantoprazole Sodium (Protonix) 40 mg PO ACBREAKFAST [facility] Last Admin: 02/15/19 06:54 Dose: 40 mg Simvastatin (Zocor) 40 mg PO DAILY [facility] Last Admin: 02/12/19 07:54 Dose: 40 mg Simvastatin (Zocor) 40 mg PO DAILY [facility] Simvastatin (Zocor) 40 mg PO DAILY [facility] Last Admin: 02/13/19 08:18 Dose: 40 mg Simvastatin (Zocor) 40 mg PO DAILY [facility] Last Admin: 02/15/19 07:29 Dose: 40 mg Sodium Chloride (Saline Flush) 10 ml FLUSH ASDIRECTED PRN PRN Reason: Keep Vein Open Verapamil HCl (Calan Sr) 240 mg PO DAILY [facility] Last Admin: 02/15/19 07:29 Dose: 240 mg Warfarin Sodium (Coumadin) 5 mg PO ASDIRECTED [facility] Warfarin Sodium (Coumadin) 5 mg PO DAILY@1200 [facility] Last Admin: 02/13/19 11:59 Dose: 5 mg Warfarin Sodium (Coumadin) 5 mg PO DAILY@1200 [facility] Last Admin: 02/14/19 12:01 Dose: 5 mg - Exam General: Reports: Alert, Oriented HEENT: Reports: Mucous Membr. Moist/[place] Neck: Reports: Supple Lungs: Reports: Clear to Auscultation, Normal Respiratory Effort Cardiovascular: Reports: Irregular Rhythm GI/Abdominal Exam: Normal Bowel Sounds, Soft, Non-Tender Extremities: Normal Inspection, No Pedal Edema Skin: Reports: Warm, Dry Neurological: Reports: No New Focal Deficit
== END 2019-02-15 10:05 | disposition home or self-care (01) | DRG 149 ==
LOC: CC.ED 11:08 → CC.MS 12:26 → UNDOADMOB 12:26 → CC.MS 12:27 → INTOOBSV 16:24 → OBSVTOIN 16:24 → CC.MS 02-13 16:24 → OBSVTOIN 02-13 16:24
PROVIDERS: ADMIT Physician Assistant Medical; ATTEND Family Medicine
DX: R42 Dizziness and giddiness (principal); R11.0 Nausea; Z79.01 Long term (current) use of anticoagulants; I48.91 Unspecified atrial fibrillation; E78.00 Pure hypercholesterolemia, unspecified; I10 Essential (primary) hypertension; M19.90 Unspecified osteoarthritis, unspecified site; G89.29 Other chronic pain; M54.2 Cervicalgia; K21.9 Gastro-esophageal reflux disease without esophagitis; R00.1 Bradycardia, unspecified
CPT/HCPCS: 36415; 70450; 80048; 80053; 81001; 84484; 85025; 85610; 86140; 93005; 96361; 96374; 97112-GP; 97750-GP; 99220; 99225; 99285-25; A9270-GY; G0378; J2405; J7030; J7050